=== PATIENT | male | born 2000 | race Caucasian/White ===

== ENCOUNTER 2025-04-23 09:13 | Emergency (ER) | payer BC, SELFPAY ==
[2025-04-23 09:28] VITALS: BP 127/72; PULSE 88; RESP 18; TEMP 36.6; O2SAT 100
--- NOTE | 2025-04-23 10:05 | ED.GENADULT ---
HPI - General Adult General Chief complaint: Upper Respiratory Infection Stated complaint: Sore Throat/Fever/Cough Source: patient Mode of arrival: ambulatory Limitations: no limitations History of Present Illness HPI narrative: Patient presents for evaluation of sick symptoms for last week. Symptoms include sinus congestion, thick yellow nasal drainage, headache, sore throat and cough. He has been taking allergy medication without much improvement. His girlfriend had similar symptoms but her symptoms have improved. He does not smoke or vape. He denies any nausea, vomiting, or diarrhea. Related Data Allergies Allergy/AdvReac Type Severity Reaction Status Date / Time No Known Allergies Allergy Verified 04/23/25 09:39 Review of Systems Review of Systems: CONSTITUTIONAL: Denies fever, chills, or sweats. EYES: Denies visual changes, redness, or discharge. ENT: Reports sinus congestion, yellow nasal drainage and sore throat. CARDIOVASCULAR: Denies chest pain, palpitations, or edema. RESPIRATORY: Reports cough. Denies dyspnea. GASTROINTESTINAL: Denies abdominal pain, nausea, vomiting, or diarrhea. GENITOURINARY: Denies dysuria or hematuria. SKIN: Denies rash or itching. MUSCULOSKELETAL: Denies back pain, joint pain, or myalgia. NEUROLOGIC: Reports headache. Denies numbness, dizziness, or weakness. PSYCHIATRIC: Denies anxiety or depression. PMFSH Past Medical History Medical History No pertinent past medical history Surgical History Surgical History History of tonsillectomy Family History Family History Mother Family history non-contributory Social History Social History Smoking status: Never smoker Substance use: never Gender identity (if verbalized by the patient): Male Sexual Orientation (if Verbalized by the Patient): Straight or Heterosexual Spiritual care concerns: No Exam Narrative: GENERAL: Well-appearing, well-nourished, and in no acute distress. HEAD: Normocephalic, atraumatic. EYES: PERRLA and EOMI. ENT: Nares clear, no rhinorrhea or epistaxis. Mucous membranes moist. Oropharynx without tonsillar hypertrophy exudate or other lesions. Bilateral TMs pearly serrano nonbulging NECK: Supple. No adenopathy or masses. No carotid bruits or JVD CHEST: Clear to auscultation. No respiratory distress. No wheezes rales or rhonchi HEART: Regular rate and rhythm. No murmur heard. Normal peripheral pulses. ABDOMEN: Soft, nontender, nondistended, normal active bowel sounds. EXTREMITIES: Normal range of motion. No edema. SKIN: Warm, dry, no rash. NEURO: No focal deficits. Alert and oriented x3. PSYCH: Normal mood and affect. Course Course Emergency Course: This is a 25 old male who presented for evaluation of sick symptoms. He meets criteria for bacterial sinusitis based upon duration of time in which he has been symptomatic and thick mucopurulent nature of his discharge. Will dc with augmentin. His strep today is negative. Will send throat culture. OTC meds may help including mucinex dm, sudafed and flonase. He should follow up with primary provider and go to the ER for worsening symptoms. Pt in agreement with plan of care. Level of Care: Express Care Visit Vital Signs Vital signs: Vital Signs Temperature 36.6 C 04/23/25 09:28 Pulse Rate 88 04/23/25 09:28 Respiratory Rate 18 04/23/25 09:28 Blood Pressure 127/72 04/23/25 09:28 Pulse Oximetry 100 04/23/25 09:28 Temperature 36.6 C 04/23/25 09:28 Pulse Rate 88 04/23/25 09:28 Respiratory Rate 18 04/23/25 09:28 Blood Pressure 127/72 04/23/25 09:28 Pulse Oximetry 100 04/23/25 09:28 Medical Decision Making Vital Signs Vital Signs: Vital Signs Temperature 36.6 C 04/23/25 09:28 Pulse Rate 88 04/23/25 09:28 Respiratory Rate 18 04/23/25 09:28 Blood Pressure 127/72 04/23/25 09:28 Pulse Oximetry 100 04/23/25 09:28 Temperature 36.6 C 04/23/25 09:28 Pulse Rate 88 04/23/25 09:28 Respiratory Rate 18 04/23/25 09:28 Blood Pressure 127/72 04/23/25 09:28 Pulse Oximetry 100 04/23/25 09:28 Discharge Plan Discharge Clinical Impression: Sinusitis Patient Disposition: Home Condition: Stable Instructions: Antibiotic Form, Sinusitis (ED) Additional Instructions: THE FOLLOWING MEDICATIONS MAY HELP YOUR SYMPTOMS: MUCINEX DM, FLONASE AND SUDAFED Patient Language: Qatari Prescriptions: New amoxicillin-pot clavulanate 875-125 mg tablet 1 tablet PO Q12H Qty: 20 0RF Follow-up/Referrals: Matt Olson MD [Physician, Family Practice] Stand Alone Forms: Work/School Release IP Time of Disposition: 10:05
[2025-04-23 10:15] LABS: EDSTREPNEGPOS1 Negative (Negative)
== END 2025-04-23 10:16 | disposition home or self-care (01) ==
PROVIDERS: Emergency Provider Nurse Practitioner
DX: J32.9 Chronic sinusitis, unspecified (principal)
CPT/HCPCS: 87081; 87880; 99203; G0463